=== PATIENT | male | born 1995 | race African-American/Black ===

== ENCOUNTER 2019-10-24 12:25 | Emergency (ER) | payer OTHER ==
[~2019-10-24] VITALS: Ht 188 cm; Wt 79.4 kg
[2019-10-24] MEDS ORDERED: IBUPROFEN 600600 M1 PO (13:53)
[2019-10-24 14:04] VITALS: BP 118/73
== END 2019-10-24 14:05 | disposition home or self-care (01) ==
LOC: ER 12:25
DX: S60.222A Contusion of left hand, initial encounter (principal); F17.210 Nicotine dependence, cigarettes, uncomplicated; W20.8XXA Other cause of strike by thrown, projected or falling object, initial encounter; Y93.89 Activity, other specified; Y92.098 Other place in other non-institutional residence as the place of occurrence of the external cause; Y99.9 Unspecified external cause status

== ENCOUNTER 2019-12-28 15:22 | Emergency (ER) | payer OTHER ==
[~2019-12-28] VITALS: Ht 190.5 cm; Wt 77.1 kg
[~2019-12-28 15:22] MED LIST: IBUPROFEN 600600 M1 PO
[2019-12-28] MEDS ORDERED: NAPROSYN500 MG PO (17:04)
[2019-12-28] MEDS ORDERED: NORCO 5-325 TA1 EAC2 PO (17:04)
[2019-12-28 17:21] VITALS: BP 118/77
== END 2019-12-28 17:22 | disposition home or self-care (01) ==
LOC: ER 15:22
DX: S40.211A Abrasion of right shoulder, initial encounter (principal); F17.210 Nicotine dependence, cigarettes, uncomplicated; W20.8XXA Other cause of strike by thrown, projected or falling object, initial encounter; Y93.89 Activity, other specified; Y92.89 Other specified places as the place of occurrence of the external cause; Y99.8 Other external cause status

== ENCOUNTER 2020-05-10 06:41 | Emergency (ER) | payer OTHER ==
[~2020-05-10] VITALS: Ht 188 cm; Wt 79.4 kg
[~2020-05-10 06:41] MED LIST changes: +NAPROSYN500 MG PO; +NORCO 5-325 TA1 EAC2 PO
[2020-05-10 06:43] VITALS: BP 129/76
[2020-05-10] MEDS ORDERED: IBUPROFEN 800800 M1 PO (07:43)
== END 2020-05-10 07:56 | disposition home or self-care (01) ==
LOC: ER 06:41
DX: S90.31XA Contusion of right foot, initial encounter (principal); F17.210 Nicotine dependence, cigarettes, uncomplicated; Z79.899 Other long term (current) drug therapy; W22.8XXA Striking against or struck by other objects, initial encounter; Y93.89 Activity, other specified; Y92.89 Other specified places as the place of occurrence of the external cause; Y99.8 Other external cause status

== ENCOUNTER 2021-04-14 18:42 | Emergency (ER) | payer OTHER ==
[~2021-04-14] VITALS: Ht 188 cm; Wt 79.4 kg
[2021-04-14 18:42] VITALS: BP 120/67
[~2021-04-14 18:42] MED LIST changes: +IBUPROFEN 800800 M1 PO
[2021-04-14] MEDS ORDERED: MEDROLDOSEPACK PO (19:03)
[2021-04-14] MEDS ORDERED: METHOCARBAMOL500 M2 PO (19:03)
== END 2021-04-14 19:00 | disposition home or self-care (01) ==
LOC: ER 18:42
DX: S39.012A Strain of muscle, fascia and tendon of lower back, initial encounter (principal); M54.31 Sciatica, right side; F17.210 Nicotine dependence, cigarettes, uncomplicated; Z79.891 Long term (current) use of opiate analgesic; Z79.899 Other long term (current) drug therapy; X58.XXXA Exposure to other specified factors, initial encounter; Y93.89 Activity, other specified; Y92.89 Other specified places as the place of occurrence of the external cause; Y99.8 Other external cause status